=== PATIENT | male | born 1950 | race Caucasian/White ===

== ENCOUNTER 2019-02-23 12:00 | Day surgery (SDC) | payer MEDICARE, BC ==
[2019-02-23] MEDS ORDERED: LIDOCAINE 2% MDV (20MG/ML) 20ML VIAL IV ONE (12:01)
[2019-02-23] MEDS ORDERED: PROPOFOL 10 MG/ML VIAL IV ONE (12:01)
--- NOTE | 2019-03-16 13:21 | Operative Note ---
DATE OF SURGERY: 02/23/2019 OPERATION: COLONOSCOPY to the cecum with cold snare polypectomy x1. INDICATION: Colorectal cancer screening. ANESTHESIA: Intravenous sedation was administered by the department of anesthesiology and included Diprivan titrated to effect. PROCEDURE: Following informed consent from this alert individual including a discussion of the risks and benefits of the procedure and an opportunity for the patient to ask questions, the patient was in the left lateral decubitus position. A digital rectal examination was performed. No abnormalities were noted. Following this, the Olympus [id number] video colonoscope was inserted into the rectum without resistance. The rectal mucosa had a normal appearance with normal folds and distensibility. The colonoscope was advanced up through the colon to the level of the cecum without much difficulty. Throughout the bowel the mucosa appeared normal, the folds were normal, and the bowel was fairly well distensible. There were some scattered diverticula noted in the sigmoid region. The cecum was defined by noting the appendiceal orifice and ileocecal valve. The colon preparation was good. Retroflexion in the cecum was endoscopically normal. From the base of the cecum, the colonoscope was then slowly withdrawn. No other changes were appreciated until the sigmoid colon was reached. Again, diverticulosis was apparent in this area. Also noted was a 4-5 mm polyp noted which was removed with cold snare polypectomy and suctioned through the colonoscope into a collection trap. The colonoscope was further withdrawn back into the rectum where retroflexion accomplished following air insufflation failed to demonstrate changes. The endoscope was straightened and removed. The patient tolerated the procedure well and was returned to the recovery area in stable condition. IMPRESSION: 1. A 4-5 mm sigmoid polyp removed with cold snare polypectomy. 2. Sigmoid diverticulosis. RECOMMENDATIONS: Further recommendations will be forthcoming pending results of pathology obtained today. Followup will otherwise be with Dr. Borja. As always, thank you for allowing me to participate in the care of your patient. CC: MD DORITA Hernández
== END 2019-02-23 14:05 | disposition home or self-care (01) ==
LOC: HOP 12:00
PROVIDERS: ATTEND Internal Medicine Gastroenterology
DX: Z12.11 Encounter for screening for malignant neoplasm of colon (principal); D12.5 Benign neoplasm of sigmoid colon; K57.30 Diverticulosis of large intestine without perforation or abscess without bleeding; I10 Essential (primary) hypertension